=== PATIENT | female | born 1935 | race Caucasian/White ===

== ENCOUNTER 2025-09-03 13:37 | Emergency (ER) | payer MEDICARE, OTHER, SELFPAY ==
[2025-09-03 13:44] VITALS: BP 193/69
--- NOTE | 2025-09-03 15:25 | ED.GENMED ---
History of Present Illness
General
Chief Complaint: Dizziness
Time Seen by Provider: 09/03/25 15:08
History of Present Illness
History of Present Illness:
Patient is a 89-year-old with history of hypertension, hyperlipidemia dementia presenting with nauseaVomiting diarrhea dizziness. Patient had her usual breakfast this morning except for 2 cups of coffee instead of 1. She then developed nausea and
multiple episodes of vomiting. She went to the bathroom had diarrhea. She has not been dizzy. She did receive droperidol by medics and I see that she feels much better. No recent travel. No antibiotics. No blood in her stool or emesis.
Intermittent abdominal pain.
Phy Exam
Physical Exam
Physical Exam:
GENERAL: in no acute distress
HEENT: normocephalic, extraocular movements intact, dry oral mucosa
NECK: normal inspection
RESPIRATORY: no respiratory distress, clear to auscultation bilaterally
CARDIOVASCULAR: regular rate and rhythm
ABDOMEN/: soft, non-distended, non-tender to palpation, no rebound or guarding
EXTREMITIES: non-tender, no edema/swelling
NEUROLOGIC: awake and alert, moves all extremities
SKIN: warm
Course
Orders/Labs/Results
Orders:
Orders
09/03/25 15:24
Electrocardiogram (*1) Urgent
Reason for Study: Fatigue / Weakness
CT Abd/pelvis W Iv Cont Urgent
Comment:
Reason For Exam: n/v/d intermittent abd pain
EKG- Treatment ONCE
0.9% Sodium Chloride 1000 ml [Nss] 1,000 ml IV BOLUS
09/03/25 15:52
Complete Blood Count/With Diff Urgent
Comprehensive Metabolic Panel Urgent
Abnormal Lab Results
09/03/25
15:52
Abs Immat Gran (auto) 0.1 H 10^3/uL
(0-0.05)
Absolute Neuts (auto) 9.0 H 10^3/uL
(1.4-6.5)
Absolute Lymphs (auto) 0.8 L 10^3/uL
(1.2-3.4)
Immature Gran % 0.7 H %
(0-0.5)
Neutrophils % 88.6 H %
(42.2-75.2)
Lymphocytes % 8.3 L %
(20.5-51.1)
Glucose 118 H mg/dl
(70-99)
09/03/25 15:52
09/03/25 15:52
Vital Signs
Initial and Last Documented VS:
Initial Vital Signs
Temp Pulse Resp BP Pulse Ox
97.5 F 51 16 193/69 96
09/03/25 13:44 09/03/25 13:44 09/03/25 13:44 09/03/25 13:44 09/03/25 13:44
Last Documented Vital Signs
Temp Pulse Resp BP Pulse Ox
97.5 F 66 19 195/95 93
09/03/25 13:44 09/03/25 19:00 09/03/25 19:00 09/03/25 16:00 09/03/25 19:00
MDM/Problems Addressed
Differential Diagnosis Includes:
Patient with history of hypertension, dementia, presenting to the emergency department with nausea vomiting diarrhea and intermittent abdominal pain over for hypertension and exam shows dry oral mucosa. concern for gastroenteritis vs diverticulitis
vs metabolic derangements, dehydration. Will check blood work ekg ct scan. Will give fluids.
*Pulse Oximetry
SaO2: 96
Oxygen Mode of Delivery: Room air
Patient hypoxic: no
*Critical Care Note
Total Time (30-74mins, 75-104mins- exclusive of procedures): Not Applicable
Update Note
Update Note:
Blood work unremarkable. CT scan with no acute abnormailty. Patient tolerating PO. Will discharge at this time with pcp followup.
ED Attending Note
-
Portions of this chart may have been created with voice recognition software.� Occasional wrong word or��sound alike� substitutions may have occurred due to the inherent limitations of voice recognition software.
Discharge Plan
Departure
Patient Disposition: Home (Routine Discharge)
Date of Disposition: 09/03/25
Time of Disposition: 19:17
Patient with high blood pressure during this ER visit?: Yes
Discharge Problem:
Vomiting, Diarrhea
Instructions: Diarrhea in teens and adults, Nausea and Vomiting, Adult (DC)
Prescriptions:
No Action
pravastatin 40 MG tablet
40 mg PO QPM
propranolol 80 MG capsule,extended release 24 hr
80 mg PO DAILY
triamterene-hydrochlorothiazid 1 EACH tablet
1 tab PO DAILY
Patient Comments:
given in PACU
ramipril 10 MG capsule
10 mg PO DAILY
cholecalciferol (vitamin D3) [Vitamin D3] 1,000 UNIT capsule
2,000 unit PO DAILY
sennosides [senna] 1 TABLET tablet
2 tab PO BID Qty: 0 0RF
aspirin 325 MG tablet,delayed release (DR/EC)
325 mg PO DAILY Qty: 0 0RF
docusate sodium 100 MG capsule
100 mg PO BID Qty: 0 0RF
alum-mag hydroxide-simeth [Mag-Al Plus] 30 ML suspension
30 ml PO Q4HPRN PRN (Reason: INDIGESTION) Qty: 0 0RF
oxycodone 5 MG tablet
5 mg PO Q4HPRN PRN (Reason: moderate-severe pain) Qty: 0 0RF
ibuprofen [Advil] 200 MG tablet
200 mg PO TID PRN (Reason: pain) Qty: 0 0RF
acetaminophen 325 MG tablet
650 mg PO Q4HPRN PRN (Reason: mild pain) Qty: 0 0RF
Referrals:
[facility] [Provider Group]
Martir Patel DO [Family Provider, Family Practice]
Activity Restrictions/Additional Instructions:
Thank You for choosing [facility].
It was a pleasure meeting you and taking part in your care.
You were seen in the Emergency Department today for vomitting and diarrhea. While you were here we performed blood work, which was reassuring.
We would like for you to follow up with your primary care physician for further evaluation. If you experience fever, worsening of your symptoms, or develop any other new or concerning symptoms, please return to the Emergency Department immediately.
Please see the attached sheet for additional information.
Interventions
Interventions:
*General Assessment Last Done: 09/03/25 13:44
*Neglect/Abuse Screening Last Done: 09/03/25 13:44
[facility] Risk Assessment Tool Last Done: 09/03/25 16:46
*Risk Screen - Suicide (C-SSRS) Last Done: 09/03/25 13:47
IO-Drruvf-Bzlhzivxcs Assessment Last Done: 09/03/25 13:47
ED- Neurological Assessment Last Done: 09/03/25 13:47
Discharge Date and Time
Print Language: IRAQI
[2025-09-03 15:50] VITALS: BP 194/71
[2025-09-03] MEDS: NSS 1000 IV (15:52)
[2025-09-03 16:00] VITALS: BP 195/95
[2025-09-03 16:01] LABS: Hematocrit 41.4 % (37.0-47.0); Hemoglobin 13.8 g/dL (12.0-16.0); Mean Corp Hgb Conc. 33.3 g/dL (33.0-37.0); Mean Corpuscular Volume 91.2 fL (81.0-99.0); Nucleated Red Blood Cells % 0 %; Platelet Count 230 10^3/uL (130-400); Red Cell Dist. Width 13.4 % (11.5-14.5)
[2025-09-03 16:17] LABS: ALT (SGPT) 14 U/L (0-35); AST (SGOT) 24 U/L (14-36); Albumin 4.4 g/dl (3.5-5.0); Alkaline Phosphatase 88 U/L (38-126); Blood Urea Nitrogen 14 mg/dl (7-17); Calcium 9.4 mg/dl (8.4-10.2); Carbon Dioxide 25 mmol/L (22-30); Chloride 102 mmol/L (98-107); Glucose 118 mg/dl (70-99); Potassium 3.9 mmol/L (3.5-5.1); Sodium 137 mmol/L (135-145); Total Protein 7.3 g/dl (6.3-8.2); eGFR > 60.00
[2025-09-03 19:28] VITALS: BP 187/104
== END 2025-09-03 19:45 | disposition home or self-care (01) ==
LOC: EMR 13:37
PROVIDERS: EMERGENCY PHYSICIAN Student in an Organized Health Care Education/Training Program; FAMILY PHYSICIAN Family Medicine
DX: R11.2 Nausea with vomiting, unspecified (principal); R19.7 Diarrhea, unspecified; R42 Dizziness and giddiness; I10 Essential (primary) hypertension; E78.00 Pure hypercholesterolemia, unspecified; F03.90 Unspecified dementia, unspecified severity, without behavioral disturbance, psychotic disturbance, mood disturbance, and anxiety
CPT/HCPCS: 99284; 96360; 74177; 80053; 85025; 93005; Q9967

== ENCOUNTER 2025-09-14 18:03 | Emergency (ER) | payer MEDICARE, OTHER, SELFPAY ==
[2025-09-14 18:09] VITALS: BP 204/89
[2025-09-14 18:40] LABS: Hematocrit 45.7 % (37.0-47.0); Hemoglobin 15.1 g/dL (12.0-16.0); Mean Corp Hgb Conc. 33.0 g/dL (33.0-37.0); Mean Corpuscular Volume 91.8 fL (81.0-99.0); Nucleated Red Blood Cells % 0 %; Platelet Count 265 10^3/uL (130-400); Red Cell Dist. Width 13.3 % (11.5-14.5)
[2025-09-14 19:06] LABS: ALT (SGPT) 13 U/L (0-35); AST (SGOT) 22 U/L (14-36); Albumin 4.4 g/dl (3.5-5.0); Alkaline Phosphatase 90 U/L (38-126); Blood Urea Nitrogen 12 mg/dl (7-17); Calcium 9.5 mg/dl (8.4-10.2); Carbon Dioxide 26 mmol/L (22-30); Chloride 104 mmol/L (98-107); Glucose 90 mg/dl (70-99); Potassium 3.9 mmol/L (3.5-5.1); Sodium 137 mmol/L (135-145); Total Protein 7.3 g/dl (6.3-8.2); eGFR > 60.00
[2025-09-14 19:07] LABS: COVID-19 Antigen Negative (Negative)
[2025-09-14 19:11] LABS: Troponin I 0.021 ng/ml
--- NOTE | 2025-09-14 21:19 | ED.GENMED ---
History of Present Illness
<DES Fernandez - Last Filed: 09/15/25 00:12>
General
Chief Complaint: Cardiac Symptoms
Source: family
Exam Limitations: other (cognitive impairment )
Time Seen by Provider: 09/14/25 21:04
Nursing documentation reviewed up to this point in time: agreed with
History of Present Illness
History of Present Illness:
89 yr old female presents to the ER brought by family. Family reports patient was seen at the residency clinic today at the [facility] and sent here for evaluation of low heart rate and elevated blood pressure. Patient is awake alert wants to
leave refusing to give history. She does have cognitive issues as per family and has had memory issues for the past 9 months getting worse over the past several weeks. Daughter reports patient stopped taking all of her medications since 2022 .
Daughter however has found propranolol and has been given her propranolol for her elevated blood pressure.Daughter reports pt has been intermittenty been complaining of left arm pain.
Phy Exam
<DES Fernandez - Last Filed: 09/15/25 00:12>
General Physical Exam
General Presentation: no apparent distress
General age: appears stated age
General Skin: warm and dry
General Habitus: elderly
General Mental: angry and confused
General Hydration: appears well hydrated
Cardiovascular Exam
Cardiovascular Exam: regular rate/rhythm, no murmur and normal peripheral pulses
Pulmonary Exam
Pulmonary Exam: lungs clear and no respiratory distress
Neurological Exam
Neurological Exam: alert and oriented x3
Musculoskeletal Exam
Musculoskeletal Exam: full ROM
Skin Exam
Skin Exam: normal color and warm/dry
Course
<DES Fernandez - Last Filed: 09/15/25 00:12>
Orders/Labs/Results
Orders:
Orders
09/14/25 18:13
Electrocardiogram (*1) Urgent
Reason for Study: Chest Pain
Electrocardiogram (*1) Urgent
Reason for Study: Bradycardia / Tachycardia
EKG- Treatment ONCE
09/14/25 18:25
COVID-19 Antigen Urgent
Source: Nasal Swab
Complete Blood Count/With Diff Urgent
Comprehensive Metabolic Panel Urgent
Troponin I Urgent
INF RAPID [Influenza A+B Rapid Molecular] Urgent
ERVIN Source: Nasal Swab
Specimen Description:
09/14/25 21:19
Electrocardiogram (*1) Urgent
Reason for Study: Chest Pain
EKG- Treatment ONCE
09/14/25 21:31
Vital Signs- Treatment ONCE
Frequency: Once
09/14/25 21:55
Losartan [Cozaar] 50 mg PO NOW STA
09/14/25 21:56
Case Management Consult ONCE
Case Management Consult: VN/Home Care
Comment: Pt seen in the ED undiagnosed dementia refusing to stay. daughter will need assistance with discharge
at home care. daughter is Linda Beth [phone]
Abnormal Lab Results
09/14/25
18:25
MPV 10.8 H fL
(7.4-10.4)
Absolute Monos (auto) 0.8 H 10^3/uL
(0.1-0.6)
Monocytes % 9.4 H %
(1.7-9.3)
09/14/25 18:25
09/14/25 18:25
Vital Signs
Initial and Last Documented VS:
Initial Vital Signs
Temp Pulse Resp BP Pulse Ox
98.1 F 45 18 204/89 98
09/14/25 18:09 09/14/25 18:09 09/14/25 18:09 09/14/25 18:09 09/14/25 18:09
Last Documented Vital Signs
Temp Pulse Resp BP Pulse Ox
98.1 F 64 18 170/82 98
09/14/25 18:09 09/14/25 21:57 09/14/25 18:09 09/14/25 22:05 09/14/25 21:20
Porcelain Waxer consulted with Physician
Porcelain Waxer consulted with physician?: Yes
Name of Physician Consulted: Dr Bueno
<Alan Bueno, DO - Last Filed: 09/14/25 21:59>
Orders/Labs/Results
Orders:
Orders
09/14/25 18:13
Electrocardiogram (*1) Urgent
Reason for Study: Chest Pain
Electrocardiogram (*1) Urgent
Reason for Study: Bradycardia / Tachycardia
EKG- Treatment ONCE
09/14/25 18:25
COVID-19 Antigen Urgent
Source: Nasal Swab
Complete Blood Count/With Diff Urgent
Comprehensive Metabolic Panel Urgent
Troponin I Urgent
INF RAPID [Influenza A+B Rapid Molecular] Urgent
ERVIN Source: Nasal Swab
Specimen Description:
09/14/25 21:19
Electrocardiogram (*1) Urgent
Reason for Study: Chest Pain
EKG- Treatment ONCE
09/14/25 21:31
Vital Signs- Treatment ONCE
Frequency: Once
09/14/25 21:55
Losartan [Cozaar] 50 mg PO NOW STA
09/14/25 21:56
Case Management Consult ONCE
Case Management Consult: VN/Home Care
Comment: Pt seen in the ED undiagnosed dementia refusing to stay. daughter will need assistance with discharge
at home care. daughter is Linda Beth [phone]
Abnormal Lab Results
09/14/25
18:25
MPV 10.8 H fL
(7.4-10.4)
Absolute Monos (auto) 0.8 H 10^3/uL
(0.1-0.6)
Monocytes % 9.4 H %
(1.7-9.3)
09/14/25 18:25
09/14/25 18:25
Vital Signs
Pulse: 64
Initial and Last Documented VS:
Initial Vital Signs
Temp Pulse Resp BP Pulse Ox
98.1 F 45 18 204/89 98
09/14/25 18:09 09/14/25 18:09 09/14/25 18:09 09/14/25 18:09 09/14/25 18:09
Last Documented Vital Signs
Temp Pulse Resp BP Pulse Ox
98.1 F 64 18 170/82 98
09/14/25 18:09 09/14/25 21:57 09/14/25 18:09 09/14/25 22:05 09/14/25 21:20
<DES Fernandez - Last Filed: 09/15/25 00:12>
MDM/Problems Addressed
Differential Diagnosis Includes:
Not limited to bradycardia hypertension
MDM/Problems Addressed:
As documented patient is an 89-year-old female who presented to the ER for evaluation. Patient has a cognitive issues for months worse over the past several weeks. Pt presently living with daughter. Daughter reports patient has not seen a doctor
in years and stopped taking her medicine in 2022 which was prescribed for blood pressure. Patient was recently seen at [facility] residency clinic and sent here for evaluation of bradycardia and hypertension. Daughter incidentally has been
giving her old propranolol that she found to lower her blood pressure. Patient's initial pulse was 48 however upon exam heart rate in the 60s. EKG was mildly bradycardic. Patient has had cognitive issues recently as documented however is very
angry that she is here and does not want to stay. Patient is very agitated pacing not cooperative. Pt eval by DR Bueno.
Risks versus benefits of admission discussed with daughter. Will discharge patient home on losartan for blood pressure patient was also given a dose here in the ER. Discussed with daughter to stop propranolol as this was likely contributing to
bradycardia.
Patient has no complaints of chest pain here. Ambulating in the room in no acute distress.
I did place a case management consult in order to get daughter more assistance at home with patient.
Chronic conditions affecting care:
Cognitive issues hypertension
<DES Fernandez - Last Filed: 09/15/25 00:12>
*Pulse Oximetry
SaO2: 98
Oxygen Mode of Delivery: Room air
Patient hypoxic: no
*Critical Care Note
Total Time (30-74mins, 75-104mins- exclusive of procedures): Not Applicable
ED Attending Note
<DES Fernandez - Last Filed: 09/15/25 00:12>
-
Portions of this chart may have been created with voice recognition software.� Occasional wrong word or��sound alike� substitutions may have occurred due to the inherent limitations of voice recognition software.
<Alan Bueno DO - Last Filed: 09/14/25 21:59>
ED Attending Note
Patient seen and examined by attending physician: Yes
I performed the substantive portion of visit, reviewed & personally made and approve the management plan that is documented in note by myself or MADHAV.: Yes
ED Attending Note:
I evaluated the patient at bedside. She clearly has evidence of dementia. Dementia has not been formally diagnosed. She is absolutely refusing to stay in the hospital. I did ask family if they would want her to undergo a cath and they clearly
said that they would not want to be very aggressive. She initially was bradycardic and had been given propranolol by family earlier. I encouraged them not to give any more propranolol or any other rate lowering medications. Currently heart rate
was 64 on my examination. Family okay with her going back but due to this ongoing dizziness in the setting of high blood pressure they are requesting something for the blood pressure. Will start losartan. We have also placed care management
consult.
Discharge Plan
Departure
Patient Disposition: Home (Routine Discharge)
Date of Disposition: 09/14/25
Time of Disposition: 21:54
Patient with high blood pressure during this ER visit?: Yes
Discharge Problem:
HTN (hypertension), Bradycardia
Instructions: Bradycardia, BLOOD PRESSURE
Prescriptions:
New
losartan 50 mg tablet
50 mg PO DAILY Qty: 30 0RF
No Action
pravastatin 40 MG tablet
40 mg PO QPM
propranolol 80 MG capsule,extended release 24 hr
80 mg PO DAILY
triamterene-hydrochlorothiazid 1 EACH tablet
1 tab PO DAILY
Patient Comments:
given in PACU
ramipril 10 MG capsule
10 mg PO DAILY
cholecalciferol (vitamin D3) [Vitamin D3] 1,000 UNIT capsule
2,000 unit PO DAILY
sennosides [senna] 1 TABLET tablet
2 tab PO BID Qty: 0 0RF
aspirin 325 MG tablet,delayed release (DR/EC)
325 mg PO DAILY Qty: 0 0RF
docusate sodium 100 MG capsule
100 mg PO BID Qty: 0 0RF
alum-mag hydroxide-simeth [Mag-Al Plus] 30 ML suspension
30 ml PO Q4HPRN PRN (Reason: INDIGESTION) Qty: 0 0RF
oxycodone 5 MG tablet
5 mg PO Q4HPRN PRN (Reason: moderate-severe pain) Qty: 0 0RF
ibuprofen [Advil] 200 MG tablet
200 mg PO TID PRN (Reason: pain) Qty: 0 0RF
acetaminophen 325 MG tablet
650 mg PO Q4HPRN PRN (Reason: mild pain) Qty: 0 0RF
Referrals:
[facility] [Outside]
Deja Wells MD [Active, Cardiology]
Activity Restrictions/Additional Instructions:
As discussed follow-up with family practice residency clinic as well as cardiology. A prescription for losartan, blood pressure medicine was sent to pharmacy take as directed. Stop propranolol.
Return if any worsening of symptoms.
Interventions
Interventions:
*General Assessment Last Done: 09/14/25 22:17
*Neglect/Abuse Screening Last Done: 09/14/25 18:09
*ED COVID-19 Vaccine History Last Done: 09/14/25 22:17
*ED Influenza Vaccine History Last Done: 09/14/25 22:17
*Risk Screen - Suicide (C-SSRS) Last Done: 09/14/25 18:09
*Nursing Disposition Last Done: 09/14/25 22:17
Discharge Date and Time
Discharge Date/Time: 09/14/25 22:18
Print Language: KYRGYZ
[2025-09-14 22:04] VITALS: BP 170/82
[2025-09-14] MEDS: COZAAR 50 MG PO (22:05)
--- NOTE | 2025-09-15 17:40 | EDCM ---
I called and spoke to pt's daughter Linda, she is interested in VN referral, agreeable to referral to [facility], referral placed in Care Port.
Pt is staying at Linda's house, correct address and phone number put in referral.
== END 2025-09-14 22:18 | disposition home or self-care (01) ==
LOC: EMR 18:03
PROVIDERS: Emergency Medicine; EMERGENCY PHYSICIAN Emergency Medicine; FAMILY PHYSICIAN Family Medicine
DX: I10 Essential (primary) hypertension (principal); R00.1 Bradycardia, unspecified; R41.89 Other symptoms and signs involving cognitive functions and awareness; T46.5X6A Underdosing of other antihypertensive drugs, initial encounter; Z91.148 Patient's other noncompliance with medication regimen for other reason; Z91.199 Patient's noncompliance with other medical treatment and regimen due to unspecified reason
CPT/HCPCS: 99284; 80053; 84484; 85025; 87502; 87811; 93005